=== PATIENT | male | born 1995 | race Caucasian/White ===

== ENCOUNTER 2017-04-11 06:38 | Emergency (ER) | payer OTHER ==
[2017-04-11 07:00] VITALS: BMI 30.5
--- NOTE | 2017-04-11 07:14 | PDOC ---
History of Present Illness - General Chief Complaint: Pain Stated Complaint: ABDOMINAL PAIN Time Seen by Provider: 04/11/17 07:00 History Source: Patient Exam Limitations: No Limitations - History of Present Illness Initial Comments: 04/11/17 07:14 CHIEF COMPLAINT: Abdominal pain HISTORY OF PRESENT ILLNESS: This is an otherwise healthy 22-year-old male who presents ambulatory to the ED for evaluation of abdominal pain. He reports the pain started gradually last night, around 8 PM. He has vomited multiple times. He had 1 loose stool. Pain is sharp/stabbing. He denies fevers/chills or any other symptoms. V/s on arrival are notable for P 114. Patient is a non-smoker and denies any alcohol use. No surgical history. REVIEW OF SYSTEMS: GENERAL/CONSTITUTIONAL: No fever or chills. No weakness. No weight change. HEAD, EYES, EARS, NOSE AND THROAT: No change in vision. No ear pain or discharge. No sore throat. CARDIOVASCULAR: No chest pain or palpitations. RESPIRATORY: No cough, wheezing, or shortness of breath. GASTROINTESTINAL: See HPI. GENITOURINARY: No dysuria, frequency, or change in urination. MUSCULOSKELETAL: No joint or muscle swelling or pain. No neck or back pain. SKIN: No rash or easy bruising. NEUROLOGIC: No headache, vertigo, loss of consciousness, or loss of sensation. PSYCHIATRIC: No depression or anxiety. ENDOCRINE: No increased thirst. No abnormal weight change. HEMATOLOGIC/LYMPHATIC: No anemia, easy bleeding, or history of blood clots. ALLERGIC/IMMUNOLOGIC: No hives or skin allergy. No latex allergy. PHYSICAL EXAM: GENERAL: The patient is awake, alert, and fully oriented, in no acute distress. ENT: Pupils equal, round and reactive to light, extraocular movements intact, sclera anicteric, conjunctiva clear. Neck supple. LUNGS: Clear to auscultation bilaterally. Normal excursion. No respiratory distress or use of accessory muscles. CV: RRR, S1/S2, no MRG. Cap refill < 2 sec. ABDOMEN: Soft, non-distended, tenderness to deep palpation just below umbilicus . Mild left CVA tenderness. EXTREMITIES: Normal range of motion, no edema. NEUROLOGICAL: Normal speech, normal gait. CN II-XII grossly intact. PSYCH: Normal mood, normal affect. SKIN: Warm, dry, normal turgor, no rashes or lesions noted. Past History - Past Medical History Allergies/Adverse Reactions: Allergies Allergy/AdvReac Type Severity Reaction Status Date / Time No Known Allergies Allergy Verified 04/11/17 06:52 Home Medications: Ambulatory Orders Ondansetron [Zofran Odt -] 4 mg SL TID PRN #21 od.tablet 04/11/17 Other medical history: Pt denies - Psycho/Social/Smoking Cessation Hx Suicidal Ideation: No Smoking History: Never smoked Information on smoking cessation initiated: No Hx Alcohol Use: No Drug/Substance Use Hx: No Substance Use Type: None *Physical Exam - Vital Signs Last Vital Signs Temp Pulse Resp BP Pulse Ox 98.4 F 114 H 20 132/88 100 04/11/17 06:52 04/11/17 06:52 04/11/17 06:52 04/11/17 06:52 04/11/17 06:52 ED Treatment Course - LABORATORY CBC & Chemistry Diagram: 04/11/17 07:50 04/11/17 07:50 Medical Decision Making - Medical Decision Making 04/11/17 07:39 A/P: 22 year old male with abdominal pain and n/v/d. 1. EKG (HR 114) 2. Labs including CBC, comp, lipase, UA 3. Pepcid and Zofran for symptomatic relief 4. IVF 5. Reassess, repeat abdominal exam 04/11/17 09:48 WBC 11.6 with 91.8% neutrophils. 04/11/17 10:00 Patient continues to complain of abdominal pain even after receiving morphine. Will obtain CTAP to rule out appendicitis. 04/11/17 11:01 CTAP: no acute process. Patient feeling better and tolerating PO. Will dc with PCP followup. Return precautions reviewed. *DC/Admit/Observation/Transfer Diagnosis at time of Disposition: Abdominal pain Qualifiers: Abdominal location: periumbilical Qualified Code(s): R10.33 - Periumbilical pain Vomiting Qualifiers: Vomiting Intractability: non-intractable Nausea presence: with nausea - Discharge Dispostion Disposition: HOME Condition at time of disposition: Stable Admit: No - Referrals Referrals: Minnie Sr MD [Staff Physician] - - Patient Instructions Printed Discharge Instructions: DI for Viral Gastroenteritis -- Adult, Gastroenteritis Diet Additional Instructions: -Your CT did not show any abnormalities -Rest and stay well-hydrated -Take Zofran if needed for nausea/vomiting -Eat a bland diet (instructions enclosed) until you are feeling better -Follow up with your primary care doctor, or if you would like a primary care provider close by, a referral is enclosed -Return here for worsening pain, inability to keep down fluids, or any other concerning symptoms - Post Discharge Activity Work/School Note: Back to Work
[2017-04-11] MEDS ORDERED: ONDANSETRON 4 MG/2 ML VIAL IVPUSH ONE (07:21)
[2017-04-11] MEDS ORDERED: FAMOTIDINE 20 MG/50 ML IVPB 20 MG in PREMIX 50 IVPB ONE (07:21)
[2017-04-11] MEDS ORDERED: SODIUM CHLORIDE 1,000 ML IV SCH (07:30)
[2017-04-11] MEDS ORDERED: ONDANSETRON 4 MG/2 ML VIAL ONE (07:40)
[2017-04-11] MEDS ORDERED: FAMOTIDINE 20 MG/50 ML IVPB 50 ML IVPB ONE (07:40)
[2017-04-11 08:10] LABS: BASOPHIL 0.3 % (0-2.0); MCH 29.7 pg (25.7-33.7); MCHC 33.5 g/dl (32.0-35.9); MEAN CELL VOLUME 88.6 fl (80-96); MEAN PLT VOLUME 8.6 fl (7.5-11.1); NEUTROPHILS 91.8 % (42.8-82.8); PLATELET COUNT 185 K/MM3 (134-434); RDW 12.9 % (11.9-15.9); WHITE BLOOD COUNT 11.6 K/mm3 (4.0-10.0)
[2017-04-11 08:31] LABS: ALBUMIN 4.2 g/dl (3.4-5.0); ALK PHOS 80 U/L (45-117); ANION GAP 11 (8-16); BILIRUBIN,TOTAL 0.7 mg/dL (0.2-1.0); CALCIUM 9.3 mg/dL (8.5-10.1); CO2 27 mmol/L (21-32); CREATININE 1.1 mg/dL (0.7-1.3); GLUCOSE,RANDOM 100 mg/dL (74-106); SGOT/AST 19 U/L (15-37); SGPT/ALT 35 U/L (12-78); TOT PROT 7.1 g/dl (6.4-8.2)
[2017-04-11] MEDS ORDERED: morphine CARPU-JECT 4 MG/1 ML DISP.SYRIN IVPUSH ONE (08:39)
[2017-04-11] MEDS ORDERED: morphine CARPU-JECT 4 MG/1 ML DISP.SYRIN ONE (08:45)
--- NOTE | 2017-04-11 09:25 | EKG ---
Test Reason : Blood Pressure : / mmHG Vent. Rate : 100 BPM Atrial Rate : 100 BPM P-R Int : 142 ms QRS Dur : 074 ms QT Int : 330 ms P-R-T Axes : 061 039 048 degrees QTc Int : 425 ms NORMAL SINUS RHYTHM NORMAL ECG NO PREVIOUS ECGS AVAILABLE Confirmed by VALENTIN MCGUIRE MD ([id number]) on 04/11/2017 9:25:18 AM Referred By: Confirmed By:VALENTIN MCGUIRE MD
[2017-04-11 09:36] LABS: PH,URINE 8.5 (5.0-8.0); URINE APPEARANCE CLEAR; URINE BILIRUBIN NEGATIVE (NEGATIVE); URINE BLOOD NEGATIVE (NEGATIVE); URINE COLOR LT. YELLOW; URINE GLUCOSE (UA) NEGATIVE (NEGATIVE); URINE KETONE 1+ (NEGATIVE); URINE LEUK ESTERASE NEGATIVE (NEGATIVE); URINE NITRITE NEGATIVE (NEGATIVE); URINE PROTEIN NEGATIVE (NEGATIVE)
[2017-04-11 11:24] VITALS: BP 124/78; PULSE 80; TEMP 98.6
--- NOTE | 2017-04-11 11:58 | PDOC ---
*Physical Exam - Vital Signs Last Vital Signs Temp Pulse Resp BP Pulse Ox 98.6 F 80 18 124/78 100 04/11/17 11:23 04/11/17 11:23 04/11/17 11:23 04/11/17 11:23 04/11/17 11:23 - Physical Exam General Appearance: Yes: Nourished, Appropriately Dressed Neck: positive: Trachea midline Respiratory/Chest: positive: Lungs Clear, Normal Breath Sounds Cardiovascular: positive: Regular Rhythm, Regular Rate, S1, S2 Gastrointestinal/Abdominal: positive: Normal Bowel Sounds, Flat, Soft. negative : Tender Musculoskeletal: positive: Normal Inspection. negative: CVA Tenderness, CVA Tenderness (R), Decreased Range of Motion Extremity: positive: Normal Capillary Refill Integumentary: positive: Normal Color, Dry, Warm Neurologic: positive: Fully Oriented, Alert, Normal Mood/Affect ED Treatment Course - LABORATORY CBC & Chemistry Diagram: 04/11/17 07:50 04/11/17 07:50 - ADDITIONAL ORDERS Additional order review: Laboratory Results 04/11/17 04/11/17 08:35 07:50 Sodium 140 Potassium 4.1 Chloride 102 Carbon Dioxide 27 Anion Gap 11 BUN 13 Creatinine 1.1 Creat Clearance w eGFR > 60 Random Glucose 100 Calcium 9.3 Total Bilirubin 0.7 AST 19 ALT 35 Alkaline Phosphatase 80 Total Protein 7.1 Albumin 4.2 Lipase 115 Urine Color Lt. yellow Urine Appearance Clear Urine pH 8.5 H Urine Protein Negative Urine Glucose (UA) Negative Urine Ketones 1+ H Urine Blood Negative Urine Nitrite Negative Urine Bilirubin Negative Urine Urobilinogen 1.0 Ur Leukocyte Esterase Negative 04/11/17 07:50 RBC 5.45 MCV 88.6 MCHC 33.5 RDW 12.9 MPV 8.6 Neutrophils % 91.8 H Lymphocytes % 4.4 L Monocytes % 3.5 L Eosinophils % 0.0 Basophils % 0.3 - Medications Given in the ED: ED Medications Discontinued Medications Generic Name Dose Route Start Last Admin Trade Name Freq PRN Reason Stop Dose Admin Famotidine/Sodium Chloride 20 50 mls @ 100 mls/hr 04/11/17 07:21 04/11/17 07:52 mg/ Miscellaneous IVPB 04/11/17 07:50 100 mls/hr ONCE ONE Administration Sodium Chloride 1,000 mls @ 125 mls/hr 04/11/17 07:30 08/14/17 07:53 Normal Saline - IV 125 mls/hr ASDIR YIN Administration Morphine Sulfate 4 mg 04/11/17 08:39 04/11/17 08:45 Morphine Injection - IVPUSH 04/11/17 08:40 4 mg ONCE ONE Administration Ondansetron HCl 4 mg 04/11/17 07:21 04/11/17 07:53 Zofran Injection IVPUSH 04/11/17 07:22 4 mg ONCE ONE Administration Medical Decision Making - Medical Decision Making 04/11/17 11:55 22 yo M no pmhx here with n/v abd pain. no f/c no sick contacts. no prior surgery. no urinary sxs. no testicular sxs. no flank pain. on exam pt awake alert. lungs clear , heart rrr no mrg. abd soft NT ND. ND skin warm and dry. pt seen and examined in conjunction with Grecia Saleem agree with plan ct negative. pt tolerating po dc home. *DC/Admit/Observation/Transfer Diagnosis at time of Disposition: Abdominal pain Qualifiers: Abdominal location: periumbilical Qualified Code(s): R10.33 - Periumbilical pain Vomiting Qualifiers: Vomiting Intractability: non-intractable Nausea presence: with nausea - Discharge Dispostion Disposition: HOME - Prescriptions Prescriptions: Ondansetron [Zofran Odt -] 4 mg SL TID PRN #21 od.tablet PRN Reason: nausea/vomiting - Referrals Referrals: Minnie Sr MD [Staff Physician] - - Patient Instructions Printed Discharge Instructions: DI for Viral Gastroenteritis -- Adult, Gastroenteritis Diet Additional Instructions: -Your CT did not show any abnormalities -Rest and stay well-hydrated -Take Zofran if needed for nausea/vomiting -Eat a bland diet (instructions enclosed) until you are feeling better -Follow up with your primary care doctor, or if you would like a primary care provider close by, a referral is enclosed -Return here for worsening pain, inability to keep down fluids, or any other concerning symptoms - Post Discharge Activity Work/School Note: Back to Work
== END 2017-04-11 11:22 | disposition home or self-care (01) ==
LOC: JER 06:38
PROC: 3E033GC Introduction of Other Therapeutic Substance into Peripheral Vein, Percutaneous Approach (ICD-10-PCS; principal; 2017-04-11)
PROC: 3E033NZ Introduction of Analgesics, Hypnotics, Sedatives into Peripheral Vein, Percutaneous Approach (ICD-10-PCS; 2017-04-11)
PROC: 3E0337Z Introduction of Electrolytic and Water Balance Substance into Peripheral Vein, Percutaneous Approach (ICD-10-PCS; 2017-04-11)
DX: R10.33 Periumbilical pain (principal)
CPT/HCPCS: 36415; 74177-TC; 80053; 81003; 83690; 85025; 93005; 93010; 99283-25